=== PATIENT | male | born 1965 | race African-American/Black ===

== ENCOUNTER 2023-07-11 18:02 | Emergency (ER) | payer BC, MEDICAID ==
[~2023-07-11] VITALS: Ht 182.9 cm; Wt 127.0 kg
[2023-07-11 18:06] VITALS: BP 135/78; PULSE 84; RESP 18; TEMP 98.3; O2SAT 99
== END 2023-07-11 23:40 | disposition home or self-care (01) ==
LOC: ER 18:02
DX: Z48.810 Encounter for surgical aftercare following surgery on the sense organs (principal); I10 Essential (primary) hypertension; N43.3 Hydrocele, unspecified
CPT/HCPCS: 99283; Z7610